=== PATIENT | female | born 1995 | race Caucasian/White ===

== ENCOUNTER 2017-06-28 16:40 | Emergency (ER) | payer OTHER ==
[~2017-06-28] VITALS: Ht 160 cm; Wt 94.2 kg
[~2017-06-28 16:40] MED LIST: ALBUAER2 INH; AMX875 PO; CETI10TA10 PO; DIPH1CAP60 PO; NORGTAB52; SNG10 PO; ZLF/50 PO
[2017-06-28 17:01] VITALS: Ht 160 cm; Wt 94.2 kg
--- NOTE | 2017-06-28 19:01 | DIAGNOSTIC IMAGING REPORT ---
CHEST 2 VIEWS ROUTINE CLINICAL HISTORY: cough, FATIGUE COMPARISON STUDY: 06/11/2014 FINDINGS: The cardiac and mediastinal contours remain stable. There are linear opacities within the lingula and right middle lobe, likely representing subsegmental atelectasis. There is no lobar consolidation. There are no pleural effusions.[ IMPRESSION: Linear opacities within the lingula and right middle lobe, likely atelectatic. Electronically signed by: Huy Adams M.D. 06/28/2017 6:59 PM Dictated Date/Time: 06/28/2017 6:58 PM
[2017-06-28] MEDS ORDERED: BCPILLS PO (19:07)
[2017-06-28] MEDS ORDERED: LISI-461 PO (19:08)
[2017-06-28] MEDS ORDERED: BUPR150T7 PO (19:08)
[2017-06-28] MEDS ORDERED: BUSPIRONE PO (19:08)
[2017-06-28] MEDS ORDERED: KLN/5 PO (19:08)
[2017-06-28] MEDS ORDERED: AZITTAB PO (19:10)
[2017-06-28 19:27] LABS: BASO % 0.8 %; BASO ABS # 0.05 K/uL (0-0.2); EOS % 1.5 %; EOS ABS # 0.09 K/uL (0-0.5); HEMATOCRIT 41.2 % (37-47); HEMOGLOBIN 13.9 g/dL (12.0-16.0); IG# 0.02 K/uL (0.00-0.02); LYMPH % 35.5 %; LYMPH ABS # 2.14 K/uL (1.2-3.4); MEAN CELL VOLUME 89.8 fL (80-100); MEAN CORPUSCULAR HEMOGLOBIN 30.3 pg (25-34); MEAN CORPUSCULAR HGB CONC 33.7 g/dl (32-36); MEAN PLATELET VOLUME 9.5 fL (7.4-10.4); MONO % 10.6 %; MONO ABS # 0.64 K/uL (0.11-0.59); NEUT % 51.3 %; NEUT ABS # 3.09 K/uL (1.4-6.5); PLATELET COUNT 338 K/uL (130-400); RED CELL DISTRIBUTION WIDTH CV 14.6 % (11.5-14.5); WHITE BLOOD COUNT 6.03 K/uL (4.8-10.8)
[2017-06-28 19:44] LABS: CALCIUM 9.2 mg/dl (8.5-10.1); CREATININE 0.73 mg/dl (0.60-1.20); POTASSIUM 4.6 mmol/L (3.5-5.1)
--- NOTE | 2017-06-28 20:34 | EMERGENCY ROOM VISIT NOTE ---
History First contact with patient: 18:33 Chief Complaint: RESPIRATORY PROBLEMS Stated Complaint: PNEUMONIA Nursing Triage Summary: Patient has been on abx for pneumonia for 3 days, states she does not feel like she is getting any better. History of Present Illness The patient is a 22 year old female who presents to the Emergency Room with complaints of pneumonia. The patient was diagnosed with pneumonia at an urgent care 3 days ago and was placed on Zithromax. The patient states that they did an x-ray but she did not know where the pneumonia was at. She states they did not do any laboratory work. The patient is taking the Zithromax as prescribed. She states she is coughing and gets pains underneath both her breasts when she coughs. The patient denies any fever, shortness of breath. The patient does admit to some yellow tinged sputum. The patient has had "silent pneumonia " in the past. Review of Systems 10 system review was performed and was negative unless stated otherwise history of present illness. Past Medical/Surgical History Surgical Problems: (1) S/P tonsillectomy Family History Cancer Diabetes mellitus Heart disease Hypertension Kidney disease Lung disease Social History Smoking Status: Never Smoker Drug Use: none Marital Status: single Housing Status: lives with family Occupation Status: student Current/Historical Medications Scheduled Azithromycin (Zithromax Z-Guevara), 1 PKT PO UD Control Pills ( Control Pills), 1 TAB PO DAILY Bupropion Hcl (Wellbutrin Sr), 150 MG PO BID Cetirizine Hcl (Zyrtec), 10 MG PO HS Diphenhydramine Hcl (Diphenhist), 25 MG PO HS Lisinopril (Zestril), 10 MG PO DAILY [Buspirone], 1 TAB PO BID Scheduled PRN Albuterol (Ventolin), 2 PUFFS INH Q4-6HRS PRN for PRN Clonazepam (Klonopin), 0.5 MG PO TID PRN for PRN Physical Exam Vital Signs Date Time Temp Pulse Resp B/P (MAP) Pulse Ox O2 Delivery O2 Flow Rate FiO2 06/28/17 20:14 103 16 157/90 98 Room Air 06/28/17 19:17 104 18 133/91 97 Room Air 06/28/17 17:01 36.9 119 16 144/99 100 Room Air Physical Exam PHYSICAL EXAM: Vital Signs were reviewed: Temperature 36.9, blood pressure 144/ 99, pulse rate 119, respiratory rate 16 Reviewed Nurse's notes and agree. Oxygen saturation is 100 % on room air which is normal . GENERAL: 22-year-old female appears in no acute distress. MENTAL STATUS: Alert, oriented, coherent. EARS: Canals clear. TMs good light reflex, no erythema or fluid level noted. NOSE: Nasal mucosa with moderate erythema engorgement. PHARYNX: No erythema, no edema noted. No exudate noted. Tonsils are absent. Airway is adequate. NECK: Supple, non-tender. No lymphadenopathy noted. LUNGS: Clear to auscultation without wheezes rales or rhonchi. CARDIAC: Regular rate and rhythm without murmur. CHEST WALL: Nontender to palpation throughout. SKIN: No rashes noted. Medical Decision & Procedures ER Provider Diagnostic Interpretation: CHEST 2 VIEWS ROUTINE CLINICAL HISTORY: cough, FATIGUE COMPARISON STUDY: 06/11/2014 FINDINGS: The cardiac and mediastinal contours remain stable. There are linear opacities within the lingula and right middle lobe, likely representing subsegmental atelectasis. There is no lobar consolidation. There are no pleural effusions.[ IMPRESSION: Linear opacities within the lingula and right middle lobe, likely atelectatic. Electronically signed by: Huy Adams M.D. 06/28/2017 6:59 PM Dictated Date/Time: 06/28/2017 6:58 PM Laboratory Results 06/28/17 19:10 Red Blood Count 4.59, Mean Corpuscular Volume 89.8, Mean Corpuscular Hemoglobin 30.3, Mean Corpuscular Hemoglobin Concent 33.7, Mean Platelet Volume 9.5, Neutrophils (%) (Auto) 51.3, Lymphocytes (%) (Auto) 35.5, Monocytes (%) (Auto) 10.6, Eosinophils (%) (Auto) 1.5, Basophils (%) (Auto) 0.8, Neutrophils # (Auto ) 3.09, Lymphocytes # (Auto) 2.14, Monocytes # (Auto) 0.64, Eosinophils # (Auto ) 0.09, Basophils # (Auto) 0.05 06/28/17 19:10 Test 06/28/17 19:10 White Blood Count 6.03 K/uL (4.8-10.8) Red Blood Count 4.59 M/uL (4.2-5.4) Hemoglobin 13.9 g/dL (12.0-16.0) Hematocrit 41.2 % (37-47) Mean Corpuscular Volume 89.8 fL (80-100) Mean Corpuscular Hemoglobin 30.3 pg (25-34) Mean Corpuscular Hemoglobin Concent 33.7 g/dl (32-36) Platelet Count 338 K/uL (130-400) Mean Platelet Volume 9.5 fL (7.4-10.4) Neutrophils (%) (Auto) 51.3 % Lymphocytes (%) (Auto) 35.5 % Monocytes (%) (Auto) 10.6 % Eosinophils (%) (Auto) 1.5 % Basophils (%) (Auto) 0.8 % Neutrophils # (Auto) 3.09 K/uL (1.4-6.5) Lymphocytes # (Auto) 2.14 K/uL (1.2-3.4) Monocytes # (Auto) 0.64 K/uL (0.11-0.59) Eosinophils # (Auto) 0.09 K/uL (0-0.5) Basophils # (Auto) 0.05 K/uL (0-0.2) RDW Standard Deviation 48.0 fL (36.4-46.3) RDW Coefficient of Variation 14.6 % (11.5-14.5) Immature Granulocyte % (Auto) 0.3 % Immature Granulocyte # (Auto) 0.02 K/uL (0.00-0.02) Anion Gap 6.0 mmol/L (3-11) Est Creatinine Clear Calc Drug Dose 134.1 ml/min Estimated GFR () 137.4 Estimated GFR (Non- 118.6 BUN/Creatinine Ratio 12.2 (10-20) Calcium Level 9.2 mg/dl (8.5-10.1) ED Course The patient was evaluated. The patient's EMR medication list were reviewed. CBC and differential and renal profile was ordered. Labs are reviewed and were unremarkable. Chest x-ray was ordered and interpreted by the radiologist as above with findings consistent with atelectasis. No pneumonia was noted. The patient was informed of the findings. The patient was given an incentive spirometer. The patient was discharged home in stable condition. Medical Decision Differential diagnosis include pneumonia, atelectasis, pleural effusion, pleuritic chest pain, URI [place] Drug Monitoring Program Search Results: patient reviewed within database Medication Reconcilliation Current Medication List: was personally reviewed by me Blood Pressure Screening Patient's blood pressure: Elevated blood pressure Blood pressure disposition: Elevated BP felt to be situational Impression Primary Impression: Atelectasis Departure Information Dispostion Home / Self-Care Condition GOOD Referrals No Doctor, Assigned (PCP) Forms HOME CARE DOCUMENTATION FORM, IMPORTANT VISIT INFORMATION, WORK / SCHOOL INSTRUCTIONS Patient Instructions ED Atelectasis, My [facility] Additional Instructions Use the incentive spirometer 10 inhalations every 1-2 hours for 5-7 days. Complete the course of antibiotic treatment. Continue all allergy medications as prescribed. If symptoms are not improving, follow-up with your family physician.
[2017-06-28 20:43] VITALS: BP 157/90; PULSE 101; TEMP 36.9; O2SAT 97
== END 2017-06-28 20:44 | disposition home or self-care (01) ==
LOC: C.EDB 16:41 → C.EDA 20:44
DX: J98.11 Atelectasis (principal); J18.9 Pneumonia, unspecified organism; Z79.899 Other long term (current) drug therapy; Z80.9 Family history of malignant neoplasm, unspecified; Z83.3 Family history of diabetes mellitus; Z82.49 Family history of ischemic heart disease and other diseases of the circulatory system; Z84.1 Family history of disorders of kidney and ureter

== ENCOUNTER 2017-11-15 18:56 | Emergency (ER) | payer OTHER ==
[~2017-11-15] VITALS: Ht 162.6 cm; Wt 98.9 kg
[~2017-11-15 18:56] MED LIST changes: -AMX875 PO; +AZITTAB PO; +BCPILLS PO; +BUPR150T7 PO; +BUSPIRONE PO; +CLON0.5T3 PO; +LISI-461 PO; -NORGTAB52; -SNG10 PO; -ZLF/50 PO
[2017-11-15 19:05] VITALS: TEMP 37.3; Ht 162.6 cm; Wt 98.9 kg
[2017-11-15] MEDS ORDERED: SUCRALFATE 1 GM TAB PO STA (19:06)
[2017-11-15] MEDS ORDERED: GI COCKTAIL PO STA (19:06)
[2017-11-15] MEDS ORDERED: FAMOTIDINE 20 MG TAB PO STA (19:06)
[2017-11-15] MEDS ORDERED: ALUMINUM/MAGNESIUM SUSP 30 ML UDC ONE (19:13)
[2017-11-15] MEDS ORDERED: LIDOCAINE HCL 2% VISC SOLN 20 ML UDC ONE (19:13)
[2017-11-15 19:32] LABS: BASO % 0.4 %; BASO ABS # 0.04 K/uL (0-0.2); HEMATOCRIT 37.3 % (37-47); HEMOGLOBIN 12.3 g/dL (12.0-16.0); IG# 0.01 K/uL (0.00-0.02); LYMPH % 27.5 %; LYMPH ABS # 2.79 K/uL (1.2-3.4); MEAN CORPUSCULAR HEMOGLOBIN 27.7 pg (25-34); MEAN PLATELET VOLUME 8.9 fL (7.4-10.4); MONO % 8.1 %; MONO ABS # 0.82 K/uL (0.11-0.59); NEUT % 61.9 %; NEUT ABS # 6.28 K/uL (1.4-6.5); PLATELET COUNT 445 K/uL (130-400); RED CELL DISTRIBUTION WIDTH CV 15.9 % (11.5-14.5); RED CELL DISTRIBUTION WIDTH SD 48.6 fL (36.4-46.3); WHITE BLOOD COUNT 10.14 K/uL (4.8-10.8)
[2017-11-15 19:35] LABS: ISTAT CREATININE 0.7 mg/dl; ISTAT IONIZED CALCIUM 1.13 mmol/l
--- NOTE | 2017-11-15 19:43 | DIAGNOSTIC IMAGING REPORT ---
CHEST ONE VIEW PORTABLE HISTORY: Atypical CHEST PAIN COMPARISON: Chest 06/28/2017. FINDINGS: Small linear density at the left lung base suggestive of scarring or atelectasis. The lungs are otherwise clear. The heart is normal in size. No pleural effusions. No pneumothorax. IMPRESSION: No acute process. Electronically signed by: Cy Azevedo M.D. 11/15/2017 7:42 PM Dictated Date/Time: 11/15/2017 7:41 PM
[2017-11-15 19:55] LABS: ALBUMIN 3.4 gm/dl (3.4-5.0); ALKALINE PHOSPHATASE 67 U/L (45-117); ALT/SGPT 30 U/L (12-78); AST/SGOT 7 U/L (15-37); BLOOD UREA NITROGEN 6 mg/dl (7-18); CARBON DIOXIDE 21 mmol/L (21-32); CKMB < 0.5 ng/ml (0.5-3.6); CREATININE 0.87 mg/dl (0.60-1.20); GLUCOSE 93 mg/dl (70-99); LIPASE 71 U/L (73-393); POTASSIUM 3.9 mmol/L (3.5-5.1); SODIUM 140 mmol/L (136-145); TOTAL PROTEIN 8.3 gm/dl (6.4-8.2)
--- NOTE | 2017-11-15 20:41 | DIAGNOSTIC IMAGING REPORT ---
ABDOMINAL ULTRASOUND, RIGHT UPPER QUADRANT HISTORY: Pt c/o RUQ abd pain . COMPARISON: None. FINDINGS: Pancreas: The pancreatic head and tail are obscured by overlying bowel gas. The remaining portions of the pancreas are within normal limits. Liver: The liver is echogenic consistent with fatty change. Gallbladder: The gallbladder is surgically absent. CBD: 3 mm. Right kidney: No hydronephrosis. IMPRESSION: 1. Cholecystectomy. 2. Hepatic steatosis. 3. Normal caliber common bile duct. Electronically signed by: Cy Azevedo M.D. 11/15/2017 8:39 PM Dictated Date/Time: 11/15/2017 8:38 PM
[2017-11-15] MEDS ORDERED: FAMO40TA6 PO (21:01)
[2017-11-15 21:16] VITALS: BP 136/82; PULSE 91; O2SAT 97
--- NOTE | 2017-11-15 23:13 | EMERGENCY ROOM VISIT NOTE ---
History Report prepared by Kimberly: Melissa Lau Under the Supervision of: Dr. Farhat Yip M.D. First contact with patient: 18:58 Stated Complaint: UPPER CHEST PAIN History of Present Illness The patient is a 22 year old female who presents to the Emergency Room with complaints of worsening chest pain starting a few hours ago. The patient states that it is in the upper right of her chest and feels like a tightness. She reports that the chest pain came on gradually. She notes that her cousin's girlfriend has been sick and she has been around her. She states that she usually gets sick easily. She notes as history of asthma. The patient complains of abdominal pain. She state that she has had it for a few days and has seen her PCP for it. She reports that they were scheduling an ultrasound. She notes a history of a cholecystectomy. She notes that she has not taken anything for pain besides a Tylenol yesterday for her fever when she was leaving the PCP. The patient denies pain with a deep breath and shortness of breath. The patient notes that she takes Lisinopril, Clonazepam, Wellbutrin, BuSpar, allergy medication, and control. She notes that she last ate 8 hours ago. Source of History: patient Onset: a few hours ago Position: chest Quality: other (tightness) Timing: worsening Associated Symptoms: + abdominal pain, No SOB Note: The patient denies pain with deep breathing. Review of Systems See HPI for pertinent positives & negatives. A total of 10 systems reviewed and were otherwise negative. Past Medical & Surgical Surgical Problems: (1) Hx of cholecystectomy (2) S/P tonsillectomy Family History Cancer Diabetes mellitus Heart disease Hypertension Kidney disease Lung disease Social History Smoking Status: Never Smoker Drug Use: none Marital Status: single Housing Status: lives with family Occupation Status: student Current/Historical Medications Scheduled Control Pills ( Control Pills), 1 TAB PO DAILY Bupropion Hcl (Wellbutrin Sr), 150 MG PO BID Cetirizine Hcl (Zyrtec), 10 MG PO HS Diphenhydramine Hcl (Diphenhist), 25 MG PO HS Famotidine (Pepcid), 40 MG PO HS Lisinopril (Zestril), 10 MG PO DAILY [Buspirone], 1 TAB PO BID Scheduled PRN Albuterol (Ventolin), 2 PUFFS INH Q4-6HRS PRN for PRN Clonazepam (Klonopin), 0.5 MG PO TID PRN for PRN Allergies Coded Allergies: Prednisone (Unverified Allergy, Unknown, HEARTBURN, 11/15/17) Physical Exam Vital Signs Date Time Temp Pulse Resp B/P (MAP) Pulse Ox O2 Delivery O2 Flow Rate FiO2 11/15/17 21:16 91 18 136/82 97 11/15/17 20:56 91 18 136/82 97 Room Air 11/15/17 19:47 91 11/15/17 19:45 101 11/15/17 19:08 Room Air 11/15/17 19:05 37.3 102 18 157/114 98 Room Air Physical Exam GENERAL: Awake, alert, well-appearing, in no acute distress HENT: Normocephalic, atraumatic. Oropharynx unremarkable. EYES: Normal conjunctiva. Sclera non-icteric. NECK: Supple. No nuchal rigidity. FROM. No JVD. RESPIRATORY: Clear to auscultation. CARDIAC: Regular rate, normal rhythm. Extremities warm and well perfused. Pulses equal. ABDOMEN: Soft, non-distended. No tenderness to palpation. No rebound or guarding. No masses. CHEST: Tenderness to the breast plate. RECTAL: Deferred. MUSCULOSKELETAL: Chest examination reveals no tenderness. The back is symmetrical on inspection without obvious abnormality. There is no CVA tenderness to palpation. No joint edema. LOWER EXTREMITIES: Calves are equal size bilaterally and non-tender. No edema. No discoloration. NEURO: Normal sensorium. No sensory or motor deficits noted. SKIN: No rash or jaundice noted. Medical Decision & Procedures ER Provider Diagnostic Interpretation: Radiology results as stated below per my review and radiologist interpretation: CHEST ONE VIEW PORTABLE HISTORY: Atypical CHEST PAIN COMPARISON: Chest 06/28/2017. FINDINGS: Small linear density at the left lung base suggestive of scarring or atelectasis. The lungs are otherwise clear. The heart is normal in size. No pleural effusions. No pneumothorax. IMPRESSION: No acute process. Electronically signed by: Cy Azevedo M.D. 11/15/2017 7:42 PM Dictated Date/Time: 11/15/2017 7:41 PM ABDOMINAL ULTRASOUND, RIGHT UPPER QUADRANT HISTORY: Pt c/o RUQ abd pain . COMPARISON: None. FINDINGS: Pancreas: The pancreatic head and tail are obscured by overlying bowel gas. The remaining portions of the pancreas are within normal limits. Liver: The liver is echogenic consistent with fatty change. Gallbladder: The gallbladder is surgically absent. CBD: 3 mm. Right kidney: No hydronephrosis. IMPRESSION: 1. Cholecystectomy. 2. Hepatic steatosis. 3. Normal caliber common bile duct. Electronically signed by: Cy Azevedo M.D. 11/15/2017 8:39 PM Dictated Date/Time: 11/15/2017 8:38 PM Laboratory Results 11/15/17 16:19 Red Blood Count 4.44, Mean Corpuscular Volume 84.0, Mean Corpuscular Hemoglobin 27.7, Mean Corpuscular Hemoglobin Concent 33.0, Mean Platelet Volume 8.9, Neutrophils (%) (Auto) 61.9, Lymphocytes (%) (Auto) 27.5, Monocytes (%) (Auto) 8.1, Eosinophils (%) (Auto) 2.0, Basophils (%) (Auto) 0.4, Neutrophils # (Auto) 6.28, Lymphocytes # (Auto) 2.79, Monocytes # (Auto) 0.82, Eosinophils # (Auto) 0.20, Basophils # (Auto) 0.04 11/15/17 16:19 Test 11/15/17 16:19 11/15/17 19:21 11/15/17 19:22 11/15/17 20:15 White Blood Count 10.14 K/uL (4.8-10.8) Red Blood Count 4.44 M/uL (4.2-5.4) Hemoglobin 12.3 g/dL (12.0-16.0) Hematocrit 37.3 % (37-47) Mean Corpuscular Volume 84.0 fL (80-100) Mean Corpuscular Hemoglobin 27.7 pg (25-34) Mean Corpuscular Hemoglobin Concent 33.0 g/dl (32-36) Platelet Count 445 K/uL (130-400) Mean Platelet Volume 8.9 fL (7.4-10.4) Neutrophils (%) (Auto) 61.9 % Lymphocytes (%) (Auto) 27.5 % Monocytes (%) (Auto) 8.1 % Eosinophils (%) (Auto) 2.0 % Basophils (%) (Auto) 0.4 % Neutrophils # (Auto) 6.28 K/uL (1.4-6.5) Lymphocytes # (Auto) 2.79 K/uL (1.2-3.4) Monocytes # (Auto) 0.82 K/uL (0.11-0.59) Eosinophils # (Auto) 0.20 K/uL (0-0.5) Basophils # (Auto) 0.04 K/uL (0-0.2) RDW Standard Deviation 48.6 fL (36.4-46.3) RDW Coefficient of Variation 15.9 % (11.5-14.5) Immature Granulocyte % (Auto) 0.1 % Immature Granulocyte # (Auto) 0.01 K/uL (0.00-0.02) Est Creatinine Clear Calc Drug Dose 117.9 ml/min Estimated GFR () 111.1 Estimated GFR (Non- 95.9 BUN/Creatinine Ratio 6.8 (10-20) Calcium Level 9.0 mg/dl (8.5-10.1) Total Bilirubin 0.2 mg/dl (0.2-1) Direct Bilirubin < 0.1 mg/dl (0-0.2) Aspartate Amino Transf (AST/SGOT) 7 U/L (15-37) Alanine Aminotransferase (ALT/SGPT) 30 U/L (12-78) Alkaline Phosphatase 67 U/L (45-117) Total Creatine Kinase 64 U/L (26-192) Creatine Kinase MB < 0.5 ng/ml (0.5-3.6) Creatine Kinase MB Ratio (0-3.0) Total Protein 8.3 gm/dl (6.4-8.2) Albumin 3.4 gm/dl (3.4-5.0) Lipase 71 U/L (73-393) Bedside Hemoglobin 11.9 g/dl (12.0-16.0) Bedside Hematocrit 35 % (37-47) Bedside Sodium 141 mEq/L (135-144) Bedside Potassium 4.0 mEq/L (3.3-5.0) Bedside Chloride 109 mEq/L (101-112) Bedside Total CO2 19 mEq/l (24-31) Anion Gap 18.0 mmol/L (16-25) Bedside Blood Urea Nitrogen 6 mg/dl (7-18) Bedside Creatinine 0.7 mg/dl Bedside Glucose (other) 95 mg/dl (70-99) Bedside Ionized Calcium (Jennifer) 1.13 mmol/l Bedside D-Dimer 420 ng/mlFEU (0-450) Urine Color YELLOW Urine Appearance CLEAR (CLEAR) Urine pH 5.0 (4.5-7.5) Urine Specific [place] 1.027 (1.000-1.030) Urine Protein NEG (NEG) Urine Glucose (UA) NEG (NEG) Urine Ketones NEG (NEG) Urine Occult Blood NEG (NEG) Urine Nitrite NEG (NEG) Urine Bilirubin NEG (NEG) Urine Urobilinogen NEG (NEG) Urine Leukocyte Esterase NEG (NEG) Test 11/15/17 20:23 Troponin I < 0.015 ng/ml (0-0.045) Labs reviewed by ED physician. Medications Administered Medications (Trade) Dose Ordered Sig/Misty Route Start Time Stop Time Status Last Admin Dose Admin Miscellaneous Medication (Gi Cocktail) 24 ml NOW STAT PO 11/15/17 19:06 11/15/17 19:11 DC 11/15/17 19:17 24 ML Famotidine (Pepcid Tab) 20 mg NOW STAT PO 11/15/17 19:06 11/15/17 19:11 DC 11/15/17 19:16 20 MG Sucralfate (Carafate Tab) 1 gm NOW STAT PO 11/15/17 19:06 11/15/17 19:11 DC 11/15/17 19:16 1 GM Lidocaine HCl (Viscous Lidocaine 2% Soln) 20 ml STK-MED ONCE .ROUTE 11/15/17 19:13 11/15/17 19:14 DC 11/15/17 19:16 20 ML Al Hydroxide/Mg Hydroxide (Maalox Susp) 30 ml STK-MED ONCE .ROUTE 11/15/17 19:13 11/15/17 19:14 DC 11/15/17 19:16 30 ML ECG Per My Interpretation Indication: chest pain Rate (beats per minute): 103 Rhythm: sinus tachycardia Findings: other (no ST elevation, no ST depression) ED Course 1858: Past medical records reviewed. The patient was evaluated in room A3. A complete history and physical examination was performed. 1905: Ordered Carafate Tab 1 gm PO, Pepcid Tab 20 mg PO, GI Cocktail 24 ml PO. 2056: Upon reexamination the patient is sleeping and resting comfortably. I discussed results and treatment plan with the patient. She verbalizes agreement and understanding. The patient is ready for discharge. Medical Decision Differential diagnosis: Etiologies such as cardiac ischemia, aortic dissection, pulmonary embolism, pneumonia, pneumothorax, musculoskeletal, infections, pericarditis, myocarditis , esophageal rupture, gastrointestinal, as well as others were entertained. This is a 22-year-old female presents emergency department complaining of chest pain. The chest pain is reproducible on physical examination. She was given a GI cocktail, Pepcid as well as Carafate. Repeat examination revealed improvement the patient's symptoms. The patient has a normal d-dimer. Serial EKGs were obtained on the patient in no time did they exhibit an acute process. EKGs are also unchanged from previous. The patient also had serial troponin levels drawn which were also found to be 0. The patient was sent for right upper quadrant abdominal ultrasound which did not show any acute process. Based on all these findings I feel that the patient could be safely discharged home. I strongly recommended 5 mL's of Maalox before every meal and at bedtime as well as Pepcid. Patient was in agreement with the treatment plan. Medication Reconcilliation Current Medication List: was personally reviewed by me Blood Pressure Screening Patient's blood pressure: Elevated blood pressure Blood pressure disposition: Referred to PCP Impression Primary Impression: Chest pain Scribe Attestation The scribe's documentation has been prepared under my direction and personally reviewed by me in its entirety. I confirm that the note above accurately reflects all work, treatment, procedures, and medical decision making performed by me. Departure Information Dispostion Home / Self-Care Prescriptions Famotidine (Pepcid) 40 Mg Tab 40 MG PO HS for 30 Days, #30 TAB Prov: Farhat Yip MD 11/15/17 Referrals No Doctor, Assigned (PCP) Additional Instructions Take 5 ml Maalox before every meal and at bedtime Clear liquid diet next 48 hours Follow up with Dr Pritchard's office You have been examined and treated today on an emergency basis only. This is not a substitute for, or an effort to provide, complete comprehensive medical care. It is impossible to recognize and treat all injuries or illnesses in a single emergency department visit. It is therefore important that you follow up closely with Dr Pritchard. Call as soon as possible for an appointment. Thank you for your time and consideration. I look forward to speaking with you again soon. Please don't hesitate to call us if you have any questions. Problem Qualifiers Primary Impression: Chest pain Chest pain type: unspecified Qualified Codes: R07.9 - Chest pain, unspecified
== END 2017-11-15 21:16 | disposition home or self-care (01) ==
LOC: EDBD 18:56 → C.EDA 18:57
DX: R07.9 Chest pain, unspecified (principal); R03.0 Elevated blood-pressure reading, without diagnosis of hypertension; Z82.49 Family history of ischemic heart disease and other diseases of the circulatory system; Z88.8 Allergy status to other drugs, medicaments and biological substances